=== PATIENT | male | born 1980 | race Caucasian/White ===

== ENCOUNTER 2017-10-05 11:01 | Day surgery (SDC) | payer BC ==
[~2017-10-05] VITALS: Ht 185.4 cm; Wt 95.0 kg
[~2017-10-05 11:01] MED LIST: NOHOMEMEDS
[2017-10-05 11:32] VITALS: BP 109/77
[2017-10-05 20:55] VITALS: BP 139/71
[2017-10-05 22:13] VITALS: BP 124/74
== END 2017-10-05 22:43 | disposition home or self-care (01) ==
LOC: SDC 11:01
PROC: 0RBK4ZZ Excision of Left Shoulder Joint, Percutaneous Endoscopic Approach (ICD-10-PCS; principal; 2017-10-05)
PROC: 0LQ20ZZ Repair Left Shoulder Tendon, Open Approach (ICD-10-PCS; principal; 2017-10-05)
DX: M75.122 Complete rotator cuff tear or rupture of left shoulder, not specified as traumatic (principal); M75.42 Impingement syndrome of left shoulder; M19.012 Primary osteoarthritis, left shoulder; F17.200 Nicotine dependence, unspecified, uncomplicated
CPT/HCPCS: 87070; 87075; 87116; 87205; 87206; C1713; J0131; J0171; J0330; J0690; J1100; J1170; J1885; J2250; J2405; J2765; J2795; J3010